=== PATIENT | male | born 1995 | race Two or more races ===

== ENCOUNTER 2022-04-10 14:39 | Emergency (ER) | payer OTHER ==
[2022-04-10 14:59] VITALS: BP 130/74
[2022-04-10] MEDS ORDERED: AMOX-277 PO (17:31)
== END 2022-04-10 18:02 | disposition home or self-care (01) ==
LOC: ER 14:55
DX: H66.93 Otitis media, unspecified, bilateral (principal); Z79.2 Long term (current) use of antibiotics